=== PATIENT | female | born 1930 | race Caucasian/White ===

== ENCOUNTER 2017-11-22 23:13 | Inpatient (IN) ==
--- NOTE | 2017-11-23 00:12 | ED ---
HPI General Chief Complaint: Fall Stated Complaint: Fall Time Seen by Provider: 11/23/17 00:08 History of Present Illness HPI Narrative: 87-year-old female presents to the emergency department by EMS transport from home after a non-syncopal slip and fall out of her chair. Patient does not know she hit her head or not but does not believe so daughter at bedside states that she has dementia. Patient denies any neck pain chest pain back pain abdominal pain or extremity pain other than the discomfort associated with her right lower extremity. Patient has severe arthritis according to the daughter and was having some difficulty with ambulating this evening. Related Data Home Medications Medication Instructions Recorded Confirmed aspirin 81 mg PO DAILY 11/23/17 11/23/17 donepezil 10 mg PO DAILY 11/23/17 11/23/17 gemfibrozil 600 mg PO BID 11/23/17 11/23/17 levothyroxine [Synthroid] 100 mcg PO DAILY 11/23/17 11/23/17 memantine See Label Instructions .ROUTE 11/23/17 11/23/17 .COMPLEX mirtazapine 30 mg PO DAILY 11/23/17 11/23/17 Previous Rx's Medication Instructions Recorded hydrocodone-acetaminophen [[place]] 1 tab PO Q4H #40 tab 11/23/17 rivaroxaban [Xarelto] 10 mg PO DAILY #14 tab 11/23/17 Allergies Allergy/AdvReac Type Severity Reaction Status Date / Time hydromorphone Allergy Severe RASH Unverified 11/22/17 23:49 penicillin G Allergy Severe Rash Unverified 11/22/17 23:49 pregabalin Allergy Severe rash Unverified 11/22/17 23:49 Sulfa (Sulfonamide Allergy Severe rash Unverified 11/22/17 23:49 Antibiotics) acetaminophen Allergy Unknown UNKNOWN Unverified 11/22/17 23:49 propoxyphene Allergy Unknown UNKNOWN Unverified 11/22/17 23:49 codeine AdvReac Severe Confusion Unverified 11/22/17 23:49 Review of Systems ROS: all other systems reviewed are negative [facility] Medical History Medical History Cancer (Acute) H/O tooth extraction (Acute) Heart attack (Acute) Hemorrhoid (Acute) History of hysterectomy (Acute) Leukemia (Acute) Lymphoma, non-Hodgkin's (Acute) Pacemaker (Acute) Polymyalgia rheumatica (Acute) Primary cancer of bone marrow (Acute) Surgical History Surgical History History of knee surgery (Acute) History of shoulder surgery (Acute) Stented coronary artery (Acute) Social History Social History Substance History: No History of Abuse Second Hand Smoke Exposure: Yes Smoking Status: Current some day smoker Tobacco Type: Cigarettes How Often Do You Have a Drink Containing Alcohol: 2 to 3 times a week [facility] within the Last 8 Weeks: No Recent Out of Country Travel within the Last 8 Weeks: No Immunization History Tetanus Immunization: >5 Years Hx Influenza Vaccine This Season: Yes Exam Narrative Exam Narrative: GENERAL: Well-nourished, well-developed patient. No acute distress no respiratory distress resting supine SKIN: Focused skin assessment warm/dry. HEAD: Normocephalic. EYES: No scleral icterus. No injection or drainage. NECK: Supple, trachea midline. No JVD or lymphadenopathy. CARDIOVASCULAR: Regular rate and rhythm without murmurs, gallops, or rubs. RESPIRATORY: Breath sounds equal bilaterally. No accessory muscle use. GASTROINTESTINAL: Abdomen soft, non-tender, nondistended. MUSCULOSKELETAL: No cyanosis, or edema. Attention right lower extremity mild soft tissue swelling noted at the proximal femur/hip with tenderness to palpation no ecchymosis no abrasion; no shortening or external rotation dorsalis pedis pulses 2+ to palpation bilaterally. Patient able to perform hip flexion knee flexion and ankle plantar and dorsiflexion of the left lower extremity but unable to perform any range of motion of the right lower extremity as precipitates increased pain at the right hip. BACK: Nontender without obvious deformity. No CVA tenderness. Course Initial Documented Vital Signs Temperature 98.0 F 11/22/17 23:37 Pulse Rate 60 11/22/17 23:37 Respiratory Rate 16 11/22/17 23:37 Blood Pressure 146/72 H 11/22/17 23:37 Pulse Oximetry 97 11/22/17 23:37 Last Documented Vital Signs Temperature 97.8 F 11/23/17 04:00 Pulse Rate 62 11/23/17 04:00 Respiratory Rate 17 11/23/17 04:00 Blood Pressure 165/74 H 11/23/17 04:00 Pulse Oximetry 96 11/23/17 04:00 Medical Decision Making MDM Narrative Medical decision making narrative: for pain management patient given morphine sulfate 4 mg [id number] female presents to the emergency department with severe hip pain status post non-syncopal slip and fall from her chair while sitting. Chair leg was caught on the rug causing her to lose her balance and fall. Patient did not hit her head or have loss of consciousness and denies other injury. Patient placed on commercial real estate manager with continuous pulse oximetry IV access obtained 1 dose as well as Zofran 4 mg imaging studies ordered Imaging studies consistent with slightly impacted femoral neck fracture. Patient informed that she has a an acute right hip fracture and will be admitted to medicine service with consult to orthopedist for surgical repair of the hip. Daughter at bedside. Patient discussed with medicine service Dr. German accepted for admission will consult orthopedist. Medical Screen Exam Complete: Yes Emergency Medical Condition: Yes Differential Diagnosis Differential Diagnosis: Fall, hip fracture, pelvic fracture, buttock contusion, electrolyte disturbance, anemia, Medical Records Medical records reviewed: Yes I reviewed the patient's medical records. Lab Data Lab results reviewed: Yes I reviewed the patient's lab results. Result diagrams: 11/23/17 01:05 11/23/17 01:05 Lab Results 11/23/17 11/23/17 11/23/17 Range/Units 01:05 01:05 01:05 WBC 5.0 (4.0-11.0) th/mm3 RBC 4.31 (4.00-5.30) mil/mm3 Hgb 13.2 (11.6-15.3) gm/dL Hct 39.4 (35.0-46.0) % MCV 91.5 (80.0-100.0) fL MCH 30.7 (27.0-34.0) pg MCHC 33.6 (32.0-36.0) % RDW 14.5 (11.6-17.2) % Plt Count 149 L (150-450) th/mm3 MPV 9.6 (7.0-11.0) fL Neut % (Auto) 60.2 (16.0-70.0) % Lymph % (Auto) 24.9 (9.0-44.0) % Graves % (Auto) 10.3 H (0.0-8.0) % Eos % (Auto) 3.9 (0.0-4.0) % Baso % (Auto) 0.7 (0.0-2.0) % Neut # (Auto) 3.0 (1.8-7.7) th/mm3 Lymph # (Auto) 1.2 (1.0-4.8) th/mm3 Graves # (Auto) 0.5 (0.0-0.9) th/mm3 Eos # (Auto) 0.2 (0.0-0.4) th/mm3 Baso # (Auto) 0.0 (0.0-0.2) th/mm3 WBC Differential . Differential Comment Auto diff final PT 10.0 (9.8-11.6) sec INR 1.0 Ratio APTT 23.6 L (24.3-30.1) sec Sodium 142 (136-145) meq/L Potassium 4.4 (3.5-5.1) meq/L Chloride 106 (98-107) meq/L Carbon Dioxide 26.1 (21.0-32.0) meq/L Anion Gap 10 (5-15) meq/L BUN 25 H (7-18) mg/dL Creatinine 1.28 H (0.50-1.00) mg/dL Estimated GFR 39 L (>89) mL/min Random Glucose 82 (74-106) mg/dL Calcium 8.6 (8.5-10.1) mg/dL Total Bilirubin 0.4 (0.2-1.0) mg/dL AST 18 (15-37) U/L ALT 17 (10-53) U/L Alkaline Phosphatase 94 (45-117) U/L Troponin I Less than 0.02 L (0.02-0.05) ng/mL Total Protein 7.0 (6.4-8.2) g/dL Albumin 3.3 L (3.4-5.0) g/dL Urine Color (Yellw/Straw) Urine Clarity (Clear) Urine pH (5.0-8.5) Ur Specific [place] (1.002-1.035) Urine Protein (Neg-Trace) mg/dL Urine Glucose (UA) (Negative) mg/dL Urine Ketones (Negative) mg/dL Urine Occult Blood (Negative) Urine Nitrate (Negative) Urine Bilirubin (Negative) Urine Urobilinogen (Less than 2) mg/dL Ur Leukocyte Esterase (Negative) Urine RBC (0-3) /hpf Urine WBC (0-5) /hpf Urine Bacteria (None) /hpf Hyaline Casts (0-3) /lpf Ur Microscopic Review Blood Type Antibody Screen 11/23/17 11/23/17 Range/Units 01:05 01:25 WBC (4.0-11.0) th/mm3 RBC (4.00-5.30) mil/mm3 Hgb (11.6-15.3) gm/dL Hct (35.0-46.0) % MCV (80.0-100.0) fL MCH (27.0-34.0) pg MCHC (32.0-36.0) % RDW (11.6-17.2) % Plt Count (150-450) th/mm3 MPV (7.0-11.0) fL Neut % (Auto) (16.0-70.0) % Lymph % (Auto) (9.0-44.0) % Graves % (Auto) (0.0-8.0) % Eos % (Auto) (0.0-4.0) % Baso % (Auto) (0.0-2.0) % Neut # (Auto) (1.8-7.7) th/mm3 Lymph # (Auto) (1.0-4.8) th/mm3 Graves # (Auto) (0.0-0.9) th/mm3 Eos # (Auto) (0.0-0.4) th/mm3 Baso # (Auto) (0.0-0.2) th/mm3 WBC Differential Differential Comment PT (9.8-11.6) sec INR Ratio APTT (24.3-30.1) sec Sodium (136-145) meq/L Potassium (3.5-5.1) meq/L Chloride (98-107) meq/L Carbon Dioxide (21.0-32.0) meq/L Anion Gap (5-15) meq/L BUN (7-18) mg/dL Creatinine (0.50-1.00) mg/dL Estimated GFR (>89) mL/min Random Glucose (74-106) mg/dL Calcium (8.5-10.1) mg/dL Total Bilirubin (0.2-1.0) mg/dL AST (15-37) U/L ALT (10-53) U/L Alkaline Phosphatase (45-117) U/L Troponin I (0.02-0.05) ng/mL Total Protein (6.4-8.2) g/dL Albumin (3.4-5.0) g/dL Urine Color Yellow (Yellw/Straw) Urine Clarity Clear (Clear) Urine pH 6.0 (5.0-8.5) Ur Specific [place] 1.014 (1.002-1.035) Urine Protein Negative (Neg-Trace) mg/dL Urine Glucose (UA) Negative (Negative) mg/dL Urine Ketones Trace H (Negative) mg/dL Urine Occult Blood Negative (Negative) Urine Nitrate Negative (Negative) Urine Bilirubin Negative (Negative) Urine Urobilinogen Less than 2 (Less than 2) mg/dL Ur Leukocyte Esterase Moderate H (Negative) Urine RBC 1 (0-3) /hpf Urine WBC 6 H (0-5) /hpf Urine Bacteria Rare H (None) /hpf Hyaline Casts 1 (0-3) /lpf Ur Microscopic Review Not Reportable Blood Type A Positive Antibody Screen Negative Imaging Data Radiologist's impression: Chest X-Ray 11/23/17 00:08 CONCLUSION: 1. No acute abnormality or significant interval change. Tibia/Fibula X-Ray 11/23/17 00:08 CONCLUSION: 1. No acute fracture. Femur X-Ray 11/23/17 00:09 CONCLUSION: 1. Right femoral neck fracture. Hip X-Ray 11/23/17 00:09 CONCLUSION: 1. Right femoral neck fracture, as above. ECG Data EKG Prior to Arrival: No Attestation: I personally reviewed and interpreted this ECG as follows: Prior ECG tracings: not available for review Interpretation: EKG: Normal sinus rhythm no acute ST elevation or injury pattern Discharge Plan Discharge Disposition Patient Disposition: 30 Still Patient Discharge Condition Condition: Stable Discharge Details Diagnosis: Closed hip fracture Physicians Team ED Provider: Laurie Gleason Primary Care Provider: Snehal Bella Attending Provider: Neymar Matthews Other Providers: Geoffrey Kerr Discharge Interventions Interventions: ED Discharge Assessment Last Done: 11/23/17 05:03 Status ED Status: Left Department Discharge Information Discharge Date/Time: 11/23/17 05:03
[2017-11-23] MEDS ORDERED: Morphine Inj 4 MG/ML Vial IV.PUSH ONE ×2 (00:20→01:27)
--- NOTE | 2017-11-23 01:10 | XR ---
EXAM DATE: 11/23/2017 1:05 AM EDT AGE/SEX: 87 years / Female INDICATIONS: Trauma due to fall. CLINICAL DATA: This is the patient's initial encounter. Patient reports that signs and symptoms have been present for 1 day and indicates a pain score of 10/10. MEDICAL/SURGICAL HISTORY: . Dementia. [place]. Non hodgkins lymphoma. Leukemia. Cancer, Bone. . Lef t knee, Right shoulder. Pacemaker. Stents. COMPARISON: [facility], CHEST SINGLE AP, 01/15/2016. . FINDINGS: No significant new focal pleural or parenchymal opacities. Stable dual lead pacemaker in place. Cardi omediastinal contours are within normal limits. Right shoulder arthroplasty. Osseous structures are o therwise intact. CONCLUSION: 1. No acute abnormality or significant interval change. Electronically signed by: Dajuan Luciano MD 11/23/2017 1:08 AM EDT
--- NOTE | 2017-11-23 01:10 | XR ---
EXAM DATE: 11/23/2017 1:07 AM EDT AGE/SEX: 87 years / Female INDICATIONS: Trauma due to fall. CLINICAL DATA: This is the patient's initial encounter. Patient reports that signs and symptoms have been present for 1 day and indicates a pain score of 0/10. MEDICAL/SURGICAL HISTORY: . Dementia. [place]. Non hodgkins lymphoma. Leukemia. Cancer, Bone. . Rig ht shoulder. Left knee. Pacemaker. Stents. COMPARISON: [facility], FEMUR RIGHT 2V, 11/23/2017. . FINDINGS: Bony structures are intact and in normal alignment. Osseous density is normal. Soft tissues are unre markable. No radiopaque foreign bodies seen. CONCLUSION: 1. No acute fracture. Electronically signed by: Dajuan Luciano MD 11/23/2017 1:09 AM EDT
--- NOTE | 2017-11-23 01:19 | XR ---
EXAM DATE: 11/23/2017 1:12 AM EDT AGE/SEX: 87 years / Female INDICATIONS: Trauma due to fall. CLINICAL DATA: This is the patient's initial encounter. Patient reports that signs and symptoms have been present for 1 day and indicates a pain score of 10/10. MEDICAL/SURGICAL HISTORY: . Dementia. [place]. Non hodgkins lymphoma. Leukemia. Cancer, Bone. . Pac emaker. Stents. Right shoulder. Left knee. COMPARISON: [facility], CT ABDOMEN & PELVIS W CONTRAST, 01/01/2016. . FINDINGS: There is a transverse fracture of the right femoral neck with slight impaction and minimal cephalad d isplacement of the distal fragment. Remaining osseous structures are intact. Joint spaces are maintai duke. Degenerative changes noted in the lower lumbar spine. No radiopaque foreign bodies. CONCLUSION: 1. Right femoral neck fracture, as above. Electronically signed by: Dajuan Luciano MD 11/23/2017 1:18 AM EDT
--- NOTE | 2017-11-23 01:20 | XR ---
EXAM DATE: 11/23/2017 1:10 AM EDT AGE/SEX: 87 years / Female INDICATIONS: Trauma due to fall. CLINICAL DATA: This is the patient's initial encounter. Patient reports that signs and symptoms have been present for 1 day and indicates a pain score of 10/10. MEDICAL/SURGICAL HISTORY: . Dementia. [place]. Non hodgkins lymphoma. Leukemia. Cancer, Bone. . Pac emaker. Stents. Right shoulde. Left knee. COMPARISON: [facility], HIP RIGHT W AP PELVIS 2V, 11/23/2017. . FINDINGS: Transverse fracture of the right femoral neck with slight cephalad displacement of the distal fragmen t. Remainder of the femur appears intact. There is anatomic alignment at the joints. No radiopaque fo reign bodies. CONCLUSION: 1. Right femoral neck fracture. Electronically signed by: Dajuan Luciano MD 11/23/2017 1:19 AM EDT
[2017-11-23 01:35] LABS: Baso % (Auto) 0.7 % (0.0-2.0); Eos # (Auto) 0.2 th/mm3 (0.0-0.4); Eos % (Auto) 3.9 % (0.0-4.0); Hematocrit 39.4 % (35.0-46.0); Hemoglobin 13.2 gm/dL (11.6-15.3); Lymph # (Auto) 1.2 th/mm3 (1.0-4.8); Lymph % (Auto) 24.9 % (9.0-44.0); Mean Corpuscular HGB Conc 33.6 % (32.0-36.0); Mean Corpuscular Hemoglobin 30.7 pg (27.0-34.0); Mean Corpuscular Volume 91.5 fL (80.0-100.0); Mean Platelet Volume 9.6 fL (7.0-11.0); Mono # (Auto) 0.5 th/mm3 (0.0-0.9); Mono % (Auto) 10.3 % (0.0-8.0); Neut % (Auto) 60.2 % (16.0-70.0); Platelet Count 149 th/mm3 (150-450); Red Blood Count 4.31 mil/mm3 (4.00-5.30); Red Cell Distribution Width 14.5 % (11.6-17.2)
[2017-11-23 01:45] LABS: Activated Partial Thrombo Time 23.6 sec (24.3-30.1)
[2017-11-23 01:47] LABS: Bacteria,Urine Rare /hpf; Bilirubin,Urine Negative (Negative); Clarity,Urine Clear (Clear); Color,Urine Yellow (Yellw/Straw); Glucose,Urine (UA) Negative (Negative); Hyaline Casts,Urine 1 /lpf (0-3); Leukocyte Esterase,Urine Moderate (Negative); Nitrite,Urine Negative (Negative); Specific Gravity,Urine 1.014 (1.002-1.035)
[2017-11-23 01:48] LABS: Alanine Aminotransferase 17 U/L (10-53); Albumin 3.3 g/dL (3.4-5.0); Anion Gap 10 meq/L (5-15); Aspartate Aminotransferase 18 U/L (15-37); Blood Urea Nitrogen 25 mg/dL (7-18); Calcium 8.6 mg/dL (8.5-10.1); Carbon Dioxide 26.1 meq/L (21.0-32.0); Chloride 106 meq/L (98-107); Glomerular Filtration Rate 39 mL/min (>89); Glucose,Random 82 mg/dL (74-106); Potassium 4.4 meq/L (3.5-5.1); Sodium 142 meq/L (136-145)
[2017-11-23 01:52] LABS: Alkaline Phosphatase 94 U/L (45-117)
[2017-11-23] MEDS ORDERED: Bisacodyl 10 MG Supp RECTAL PRN (01:54)
--- NOTE | 2017-11-23 02:16 | P.HPIM ---
History of Present Illness Primary Care Physician: Snehal Bella MD History of Present Illness: This is an 87-year-old female with a PMH of HTN, Polymyalgia Rheumatica, Non- Hodgkin's Lymphoma and CAD who was brought to the ER by EMS w/ c/o right hip pain after a fall. Pt states she was sitting on her porch in a "swivel chair" and lost her balance when she got up, landing on her right hip. Reports some dizziness prior to fall, but no head trauma or LOC. Pain initially severe, 10/ 10, worse w/ movement, non-radiating. S/p Morphine in ER w/ significant improvement, currently pain free. On arrival, BP 146/72, HR 60, O2 sat 97% on RA, Afebrile. CBC unremarkable except for thrombus cytopenia with platelets 149. INR 1.0. Chemistry unremarkable except for creatinine 1.28, Cici 1.10 on 01/15/2016. Troponin negative. UA moderate LE. CXR no acute findings. Tib- fib X-ray no acute fracture. Femur/Hip x-ray right femoral neck fracture. - Diagnosis (1) Fall (2) Hip fracture, right (3) Renal insufficiency Inpatient Certification: I certify that the inpatient services were ordered in accordance with Medicare regulations governing the order. This includes certification that hospital inpatient services are reasonable and necessary and in the case of services not specified as inpatient-only under 42 CFR 419.22(n), that they are appropriately provided as inpatient services in accordance to with the 2-midnight benchmark under 43 CFR 412.3(e) Estimated Total Length of Stay (Days): 2 Plans for Post Hospital Care: Not yet determined Review of Systems PAST FAMILY HISTORY: Reviewed. No h/o DM or CAD All other systems reviewed negative except as stated in HPI PMFSH - History History Provided By: Family Member - Medical History Medical History: Medical History (Last Updated 11/22/17 @ 23:45 by Greta Goncalves) Cancer H/O tooth extraction Heart attack Hemorrhoid History of hysterectomy Leukemia Lymphoma, non-Hodgkin's Pacemaker Polymyalgia rheumatica Primary cancer of bone marrow - Surgical History Surgical History: Surgical History (Last Updated 11/22/17 @ 23:45 by Greta Goncalves) History of knee surgery History of shoulder surgery Stented coronary artery - Tobacco History Tobacco Use In Past 30 Days: Yes Smoking Status: Current every day smoker Tobacco Type: Cigarettes - Alcohol History How Often Do You Have a Drink Containing Alcohol: 2 to 4 times a month - Substance Use History Substance History: No History of Abuse - Travel History Recent Travel in the [place] Within the Last 8 Weeks: No Recent Travel Out of the Country Within the Last 8 Weeks: No - Immunization History Tetanus Immunization: >5 Years Hx Influenza Vaccine This Season: Yes Medications and Allergies Active Medications: Active Medications Al Hydroxide/Mg Hydroxide (Milk Of Magnesia Liq) 30 ml PO Q12H PRN PRN Reason: Mild Constipation Bisacodyl (Dulcolax Supp) 10 mg RECTAL DAILY PRN PRN Reason: SEVERE CONSITIPATION Sodium Chloride (Ns Inj) 1,000 mls @ 100 mls/hr IV.CONT .Q10H ISIDORO Lactulose (Lactulose Liq) 30 ml PO DAILY PRN PRN Reason: SEVERE CONSITIPATION Morphine Sulfate (Morphine Inj) 2 mg IV.PUSH Q4H PRN PRN Reason: PAIN 6-10 Ondansetron HCl (Zofran Inj) 4 mg IV.PUSH Q6H PRN PRN Reason: NAUSEA OR VOMITING Senna/Docusate Sodium (Loni-Colace) 1 tab PO BID ISIDORO Sennosides (Senokot) 17.2 mg PO Q12H PRN PRN Reason: Moderate Constipation Sodium Chloride (Ns Flush) 2 ml IV.FLUSH UNSCH PRN PRN Reason: FLUSH AFTER USING IV ACCESS Allergies Allergy/AdvReac Type Severity Reaction Status Date / Time hydromorphone Allergy Severe RASH Unverified 11/22/17 23:49 penicillin G Allergy Severe Rash Unverified 11/22/17 23:49 pregabalin Allergy Severe rash Unverified 11/22/17 23:49 Sulfa (Sulfonamide Allergy Severe rash Unverified 11/22/17 23:49 Antibiotics) acetaminophen Allergy Unknown UNKNOWN Unverified 11/22/17 23:49 propoxyphene Allergy Unknown UNKNOWN Unverified 11/22/17 23:49 codeine AdvReac Severe Confusion Unverified 11/22/17 23:49 Home Medications Medication Instructions Recorded Confirmed Type aspirin 81 mg PO DAILY 11/23/17 11/23/17 History donepezil 10 mg PO DAILY 11/23/17 11/23/17 History gemfibrozil 600 mg PO BID 11/23/17 11/23/17 History levothyroxine [Synthroid] 100 mcg PO DAILY 11/23/17 11/23/17 History memantine See Label Instructions .ROUTE 11/23/17 11/23/17 History .COMPLEX mirtazapine 30 mg PO DAILY 11/23/17 11/23/17 History Exam Vital signs: Vital Signs 11/22/17 23:37 11/23/17 00:12 Temperature 98.0 F Pulse Rate 60 66 Respiratory Rate 16 Blood Pressure 146/72 H Pulse Oximetry 97 Intake & Output 11/22/17 11/22/17 11/23/17 06:59 18:59 06:59 Weight 68.039 kg Narrative: PE: GENERAL: Extremely pleasant elderly white female in no acute distress. SKIN: Focused skin assessment warm and dry. HEENT: PERRLA, EOMI. No scleral icterus or conjunctival pallor. No lid lag or facial droop. CARDIOVASCULAR: Regular rate and rhythm. No obvious murmurs to auscultation. No chest tenderness to palpation. RESPIRATORY: No obvious rhonchi or wheezing. Clear to auscultation. Breath sounds equal bilaterally. GASTROINTESTINAL: Abdomen soft, non-tender, nondistended. BS normal. MUSCULOSKELETAL: Extremities without clubbing, cyanosis, or edema. No obvious deformities. Decreased ROM of RLE due to injury, pain w/ movement. NEUROLOGICAL: Awake, alert and oriented x4. No focal neurologic deficits. Moving both upper and lower extremities spontaneously. PSYCHIATRIC: Appropriate mood and affect. Insight and judgment normal. Results - Labs CBC & Chem 7: 11/23/17 01:05 11/23/17 01:05 Labs: Short CBC 11/23/17 Range/Units 01:05 WBC 5.0 (4.0-11.0) th/mm3 Hgb 13.2 (11.6-15.3) gm/dL Hct 39.4 (35.0-46.0) % Plt Count 149 L (150-450) th/mm3 BMP 11/23/17 01:05 Sodium 142 Potassium 4.4 Chloride 106 Carbon Dioxide 26.1 BUN 25 H Creatinine 1.28 H Calcium 8.6 Cardiac Enzymes 11/23/17 Range/Units 01:05 Troponin I Less than 0.02 L (0.02-0.05) ng/mL Liver Function 11/23/17 Range/Units 01:05 Total Bilirubin 0.4 (0.2-1.0) mg/dL AST 18 (15-37) U/L ALT 17 (10-53) U/L Alkaline Phosphatase 94 (45-117) U/L Albumin 3.3 L (3.4-5.0) g/dL Urine 11/23/17 Range/Units 01:25 Urine Color Yellow (Yellw/Straw) Urine Clarity Clear (Clear) Urine pH 6.0 (5.0-8.5) Ur Specific [place] 1.014 (1.002-1.035) Urine Protein Negative (Neg-Trace) mg/dL Urine Glucose (UA) Negative (Negative) mg/dL - Imaging Impressions Chest X-Ray 11/23/17 00:08 CONCLUSION: 1. No acute abnormality or significant interval change. Tibia/Fibula X-Ray 11/23/17 00:08 CONCLUSION: 1. No acute fracture. Femur X-Ray 11/23/17 00:09 CONCLUSION: 1. Right femoral neck fracture. Hip X-Ray 11/23/17 00:09 CONCLUSION: 1. Right femoral neck fracture, as above. Caprini VTE Risk Assessment Caprini VTE Risk Assessment: No/Low Risk (score <= 1) Caprini Risk Assessment Model: Point Value = 1 Point Value = 2 Point Value = 3 Point Value = 5 Age 41-60 Minor surgery BMI > 25 kg/m2 Swollen legs Varicose veins or History of unexplained or recurrent spontaneous Oral contraceptives or hormone replacement Sepsis (< 1 month) Serious lung disease, including pneumonia (< 1 month) Abnormal pulmonary function Acute myocardial infarction Congestive heart failure (< 1 month) History of inflammatory bowel disease Medical patient at bed rest Age 61-74 Arthroscopic surgery Major open surgery (> 45 min) Laparoscopic surgery (> 45 min) Malignancy Confined to bed (> 72 hours) Immobilizing plaster cast Central venous access Age >= 75 History of VTE Family history of VTE Factor V Leiden Prothrombin [id number] Lupus anticoagulant Anticardiolipin antibodies Elevated serum homocysteine Heparin-induced thrombocytopenia Other congenital or acquired thrombophilia Stroke (< 1 month) Elective arthroplasty Hip, pelvis, or leg fracture Acute spinal cord injury (< 1 month) Prophylaxis Regimen: Total Risk Factor Score Risk Level Prophylaxis Regimen 0-1 Low Early ambulation 2 Moderate Order ONE of the following: *Sequential Compression Device (SCD) *Heparin 5000 units SQ BID 3-4 Higher Order ONE of the following medications: *Heparin 5000 units SQ TID *Enoxaparin/Lovenox 40 mg SQ daily (WT < 150 kg, CrCl > 30 mL/min) *Enoxaparin/Lovenox 30 mg SQ daily (WT < 150 kg, CrCl > 10-29 mL/min) *Enoxaparin/Lovenox 30 mg SQ BID (WT < 150 kg, CrCl > 30 mL/min) AND/OR *Sequential Compression Device (SCD) 5 or more Highest Order ONE of the following medications: *Heparin 5000 units SQ TID (Preferred with Epidurals) *Enoxaparin/Lovenox 40 mg SQ daily (WT < 150 kg, CrCl > 30 mL/min) *Enoxaparin/Lovenox 30 mg SQ daily (WT < 150 kg, CrCl > 10-29 mL/min) *Enoxaparin/Lovenox 30 mg SQ BID (WT < 150 kg, CrCl > 30 mL/min) AND *Sequential Compression Device (SCD) Assessment and Plan - Assessment (1) Fall Code(s): W19.XXXA - Unspecified fall, initial encounter Status: Acute (2) Hip fracture, right Code(s): S72.001A - Fracture of unspecified part of neck of right femur, initial encounter for closed fracture Status: Acute (3) Renal insufficiency Code(s): N28.9 - Disorder of kidney and ureter, unspecified Status: Acute - Plan A/P: 1. Fall: s/p mechanical fall at home, denies LOC or head trauma. 2. Right Hip Fx: secondary to above, Femur/Hip X-ray w/ right femoral neck fracture, images reviewed. Consult Ortho for further eval/intervention, NPO, IVF, analgesics/antiemetics as needed. 3. Renal Insufficiency: Creatinine 1.28, previously 1.10 on 01/15/16, IVF for hydration, monitor I/O, repeat labs in am. 4. DVT Prophylaxis: Anticoagulation post op 5. Social work for d/c planning as needed 6. Case discussed w/ ER physician at length, labs/records/imaging reviewed by me.
[2017-11-23] MEDS: Mirtazapine 15 MG Tablet PO PRN (03:09)
[2017-11-23] MEDS: Sod Chloride 0.9% Inj 1,000 ML IV.CONT SCH ×3 (03:09→11:57)
[2017-11-23] MEDS ORDERED: Chlorhexidine Gluconate 2% 1 Pack (2 Cloths) TOPICAL ONE (05:21)
[2017-11-23] MEDS ORDERED: Metoprolol Tartrate 25 MG Tablet PO ONE (05:21)
[2017-11-23] MEDS: Morphine Inj 4 MG/ML Vial IV.PUSH PRN (05:37)
[2017-11-23] MEDS ORDERED: Sodium Chlor 0.9% Inj 500 ML IV.SIG SCH (06:00)
--- NOTE | 2017-11-23 06:45 | P.PNOP ---
Subjective Interval history: s/p fall right hip pain Physical Exam Vital signs: Vital Signs 11/22/17 23:37 11/23/17 00:12 11/23/17 04:00 Temperature 98.0 F 97.8 F Pulse Rate 60 66 62 Respiratory Rate 16 17 Blood Pressure 146/72 H 165/74 H Pulse Oximetry 97 96 Intake & Output 11/22/17 11/22/17 11/23/17 06:59 18:59 06:59 Weight 58.3 kg Other: Weight On Admission 58.3 kg Narrative: RLE: pain with motion. nvi - Urinary Catheter Management Indwelling Urethral Catheter Cath placed during this visit: yes Reason for continuing: Hourly intake/output Insertion date: 11/23/17 Insertion time: 01:28 Results - Labs CBC & Chem 7: 11/23/17 01:05 11/23/17 01:05 Laboratory Results - last 24 hr 11/23/17 11/23/17 11/23/17 01:05 01:05 01:05 WBC 5.0 RBC 4.31 Hgb 13.2 Hct 39.4 MCV 91.5 MCH 30.7 MCHC 33.6 RDW 14.5 Plt Count 149 L MPV 9.6 Neut % (Auto) 60.2 Lymph % (Auto) 24.9 [place] % (Auto) 10.3 H Eos % (Auto) 3.9 Baso % (Auto) 0.7 Neut # (Auto) 3.0 Lymph # (Auto) 1.2 [place] # (Auto) 0.5 Eos # (Auto) 0.2 Baso # (Auto) 0.0 WBC Differential . Differential Comment Auto diff final PT 10.0 INR 1.0 APTT 23.6 L Sodium 142 Potassium 4.4 Chloride 106 Carbon Dioxide 26.1 Anion Gap 10 BUN 25 H Creatinine 1.28 H Estimated GFR 39 L Random Glucose 82 Calcium 8.6 Total Bilirubin 0.4 AST 18 ALT 17 Alkaline Phosphatase 94 Troponin I Less than 0.02 L Total Protein 7.0 Albumin 3.3 L Urine Color Urine Clarity Urine pH Ur Specific [place] Urine Protein Urine Glucose (UA) Urine Ketones Urine Occult Blood Urine Nitrate Urine Bilirubin Urine Urobilinogen Ur Leukocyte Esterase Urine RBC Urine WBC Urine Bacteria Hyaline Casts Ur Microscopic Review Blood Type Antibody Screen 11/23/17 11/23/17 01:05 01:25 WBC RBC Hgb Hct MCV MCH MCHC RDW Plt Count MPV Neut % (Auto) Lymph % (Auto) [place] % (Auto) Eos % (Auto) Baso % (Auto) Neut # (Auto) Lymph # (Auto) [place] # (Auto) Eos # (Auto) Baso # (Auto) WBC Differential Differential Comment PT INR APTT Sodium Potassium Chloride Carbon Dioxide Anion Gap BUN Creatinine Estimated GFR Random Glucose Calcium Total Bilirubin AST ALT Alkaline Phosphatase Troponin I Total Protein Albumin Urine Color Yellow Urine Clarity Clear Urine pH 6.0 Ur Specific [place] 1.014 Urine Protein Negative Urine Glucose (UA) Negative Urine Ketones Trace H Urine Occult Blood Negative Urine Nitrate Negative Urine Bilirubin Negative Urine Urobilinogen Less than 2 Ur Leukocyte Esterase Moderate H Urine RBC 1 Urine WBC 6 H Urine Bacteria Rare H Hyaline Casts 1 Ur Microscopic Review Not Reportable Blood Type A Positive Antibody Screen Negative - Imaging Impressions Chest X-Ray 11/23/17 00:08 CONCLUSION: 1. No acute abnormality or significant interval change. Tibia/Fibula X-Ray 11/23/17 00:08 CONCLUSION: 1. No acute fracture. Femur X-Ray 11/23/17 00:09 CONCLUSION: 1. Right femoral neck fracture. Hip X-Ray 11/23/17 00:09 CONCLUSION: 1. Right femoral neck fracture, as above. Assessment and Plan - Assessment and Plan 1) Right Femoral NEck Fx -npo -consents -surgery today [facility] Prescription Drug Monitoring Database has been queried and verified prior to prescribing the controlled substance. Acute pain exception. This patient has normal, predicted, physiological, and time limited response to an adverse mechanical stimulus associated with surgery, trauma, or acute illness as described in my notes. There is a lack of alternative treatment options other than to include the prescribed narcotic treatment for this condition.
--- NOTE | 2017-11-23 06:47 | P.CONOP ---
[facility] Orthopedics Consult Note - [facility] Consult date: 11/23/17 Chief complaint: Right femoral neck fracture Narrative: Idalia is an 87-year-old female. She was at home when she fell. She was sitting in a chair that swivels when she lost her balance. She was getting up when she lost her balance and fell. She landed on her right side. She had immediate right hip pain. Initially pain was severe. The pain is worse with movement and is improved with rest. She presented to the emergency room where x -rays revealed a displaced right femoral neck fracture. She is currently awake alert on the orthopedic floor. Her only complaint is right hip. Review of Systems Patient denies fevers, chills, weight loss, headache, visual changes, hearing loss, chest pain, palpitations, shortness of breath, nausea, vomiting, no urinary changes, diarrhea, bowel changes, neck pain, back pain, skin rashes, weakness of extremities, easy bleeding, enlarged lymph nodes, numbness of extremities, anxiety, or depression. Patient's social history, past medical history, and family history were reviewed on chart and with patient. [facility] - History History Provided By: Patient - Medical History Medical History: Medical History (Last Reviewed 11/23/17 @ 06:40 by Geoffrey Kerr MD) Cancer H/O tooth extraction Heart attack Hemorrhoid History of hysterectomy Leukemia Lymphoma, non-Hodgkin's Pacemaker Polymyalgia rheumatica Primary cancer of bone marrow - Surgical History Surgical History: Surgical History (Last Reviewed 11/23/17 @ 06:40 by Geoffrey Kerr MD) History of knee surgery History of shoulder surgery Stented coronary artery - Social History I have reviewed the patient's Social History: Yes - Tobacco History Second Hand Smoke Exposure: Yes Tobacco Use In Past 30 Days: Yes Smoking Status: Current some day smoker Tobacco Type: Cigarettes - Alcohol History How Often Do You Have a Drink Containing Alcohol: 2 to 3 times a week - Substance Use History Substance History: No History of Abuse - Travel History Recent Travel in the [place] Within the Last 8 Weeks: No Recent Travel Out of the Country Within the Last 8 Weeks: No - Immunization History Tetanus Immunization: >5 Years Hx Influenza Vaccine This Season: Yes Medications and Allergies Active Medications: Active Medications Al Hydroxide/Mg Hydroxide (Milk Of Magnesia Liq) 30 ml PO Q12H PRN PRN Reason: Mild Constipation Bisacodyl (Dulcolax Supp) 10 mg RECTAL DAILY PRN PRN Reason: SEVERE CONSITIPATION Donepezil HCl (Aricept) 10 mg PO DAILY [facility] Gemfibrozil (Lopid) 600 mg PO BID [facility] Sodium Chloride (Ns Inj) 1,000 mls @ 100 mls/hr IV.CONT .Q10H [facility] Last Admin: 11/23/17 03:09 Dose: 100 mls/hr Lactated Ringer's (Lr 1000 Ml Inj) 1,000 mls @ 30 mls/hr IV.SIG .Q24H [facility] Stop: 11/24/17 05:29 Last Admin: 11/23/17 06:35 Dose: Not Given Sodium Chloride (Ns Inj) 500 mls @ 30 mls/hr IV.SIG .Q10H [facility] Lactulose (Lactulose Liq) 30 ml PO DAILY PRN PRN Reason: SEVERE CONSITIPATION Levothyroxine Sodium (Synthroid) 100 mcg PO DAILY@0600 [facility] Mirtazapine (Remeron) 15 mg PO HS PRN PRN Reason: SLEEP Last Admin: 11/23/17 03:09 Dose: 15 mg Morphine Sulfate (Morphine Inj) 2 mg IV.PUSH Q4H PRN PRN Reason: PAIN 6-10 Last Admin: 11/23/17 05:37 Dose: 2 mg Ondansetron HCl (Zofran Inj) 4 mg IV.PUSH Q6H PRN PRN Reason: NAUSEA OR VOMITING Senna/Docusate Sodium (Loni-Colace) 1 tab PO BID [facility] Sennosides (Senokot) 17.2 mg PO Q12H PRN PRN Reason: Moderate Constipation Sodium Chloride (Ns Flush) 2 ml IV.FLUSH UNSCH PRN PRN Reason: FLUSH AFTER USING IV ACCESS Allergies Allergy/AdvReac Type Severity Reaction Status Date / Time hydromorphone Allergy Severe RASH Unverified 11/22/17 23:49 penicillin G Allergy Severe Rash Unverified 11/22/17 23:49 pregabalin Allergy Severe rash Unverified 11/22/17 23:49 Sulfa (Sulfonamide Allergy Severe rash Unverified 11/22/17 23:49 Antibiotics) acetaminophen Allergy Unknown UNKNOWN Unverified 11/22/17 23:49 propoxyphene Allergy Unknown UNKNOWN Unverified 11/22/17 23:49 codeine AdvReac Severe Confusion Unverified 11/22/17 23:49 Home Medications Medication Instructions Recorded Confirmed Type aspirin 81 mg PO DAILY 11/23/17 11/23/17 History donepezil 10 mg PO DAILY 11/23/17 11/23/17 History gemfibrozil 600 mg PO BID 11/23/17 11/23/17 History levothyroxine [Synthroid] 100 mcg PO DAILY 11/23/17 11/23/17 History memantine See Label Instructions .ROUTE 11/23/17 11/23/17 History .COMPLEX mirtazapine 30 mg PO DAILY 11/23/17 11/23/17 History Exam Vital signs: Vital Signs 11/22/17 23:37 11/23/17 00:12 11/23/17 04:00 Temperature 98.0 F 97.8 F Pulse Rate 60 66 62 Respiratory Rate 16 17 Blood Pressure 146/72 H 165/74 H Pulse Oximetry 97 96 Intake & Output 11/22/17 11/22/17 11/23/17 06:59 18:59 06:59 Weight 58.3 kg Other: Weight On Admission 58.3 kg Narrative: Idalia is a pleasant 87-year-old female. General: Awake and alert. No acute distress. Appears well-developed well- nourished Head: Normocephalic, atraumatic pupils are equal Neck: Soft, nontender, trachea midline Abdomen: Soft, nondistended Examination of right arm reveals no pain or deformity with shoulder, elbow, or wrist motion. Skin is intact. Radial pulse is palpable. Normal capillary refill in fingers. Sensation is intact in radial, ulnar, and median nerve distributions. [employer] strength is +5. No lymphadenopathy noted. Examination of left arm reveals no pain or deformity with shoulder, elbow, or wrist motion. Skin is intact. Radial pulse is palpable. Normal capillary refill in fingers. Sensation is intact in radial, ulnar, and median nerve distributions. [employer] strength is +5. No lymphadenopathy noted. Examination of left lower extremity reveals no pain or deformity with hip, knee , or ankle motion. Skin is intact. Sensation is intact in left foot. Dorsalis pedis pulse is palpable. Normal capillary refill and feet. Thigh and calf compartments are soft. No lymphadenopathy noted. +5 strength of ankle dorsiflexion and plantarflexion. Examination of right lower extremity reveals pain with any hip motion. She is tender to palpation around her hip. She has no tenderness around her knee or ankle. Skin is intact. Sensation is intact in right foot. Dorsalis pedis pulse is palpable. Normal capillary refill and feet. Thigh and calf compartments are soft. No lymphadenopathy noted. +5 strength of ankle dorsiflexion and plantarflexion. Results - Labs Result Diagrams: 11/23/17 01:05 11/23/17 01:05 Labs: Laboratory Results - last 24 hr 11/23/17 11/23/17 11/23/17 01:05 01:05 01:05 WBC 5.0 RBC 4.31 Hgb 13.2 Hct 39.4 MCV 91.5 MCH 30.7 MCHC 33.6 RDW 14.5 Plt Count 149 L MPV 9.6 Neut % (Auto) 60.2 Lymph % (Auto) 24.9 [place] % (Auto) 10.3 H Eos % (Auto) 3.9 Baso % (Auto) 0.7 Neut # (Auto) 3.0 Lymph # (Auto) 1.2 [place] # (Auto) 0.5 Eos # (Auto) 0.2 Baso # (Auto) 0.0 WBC Differential . Differential Comment Auto diff final PT 10.0 INR 1.0 APTT 23.6 L Sodium 142 Potassium 4.4 Chloride 106 Carbon Dioxide 26.1 Anion Gap 10 BUN 25 H Creatinine 1.28 H Estimated GFR 39 L Random Glucose 82 Calcium 8.6 Total Bilirubin 0.4 AST 18 ALT 17 Alkaline Phosphatase 94 Troponin I Less than 0.02 L Total Protein 7.0 Albumin 3.3 L Urine Color Urine Clarity Urine pH Ur Specific [place] Urine Protein Urine Glucose (UA) Urine Ketones Urine Occult Blood Urine Nitrate Urine Bilirubin Urine Urobilinogen Ur Leukocyte Esterase Urine RBC Urine WBC Urine Bacteria Hyaline Casts Ur Microscopic Review Blood Type Antibody Screen 11/23/17 11/23/17 01:05 01:25 WBC RBC Hgb Hct MCV MCH MCHC RDW Plt Count MPV Neut % (Auto) Lymph % (Auto) [place] % (Auto) Eos % (Auto) Baso % (Auto) Neut # (Auto) Lymph # (Auto) [place] # (Auto) Eos # (Auto) Baso # (Auto) WBC Differential Differential Comment PT INR APTT Sodium Potassium Chloride Carbon Dioxide Anion Gap BUN Creatinine Estimated GFR Random Glucose Calcium Total Bilirubin AST ALT Alkaline Phosphatase Troponin I Total Protein Albumin Urine Color Yellow Urine Clarity Clear Urine pH 6.0 Ur Specific [place] 1.014 Urine Protein Negative Urine Glucose (UA) Negative Urine Ketones Trace H Urine Occult Blood Negative Urine Nitrate Negative Urine Bilirubin Negative Urine Urobilinogen Less than 2 Ur Leukocyte Esterase Moderate H Urine RBC 1 Urine WBC 6 H Urine Bacteria Rare H Hyaline Casts 1 Ur Microscopic Review Not Reportable Blood Type A Positive Antibody Screen Negative - Diagnostic results Imaging: Impressions Chest X-Ray 11/23/17 00:08 CONCLUSION: 1. No acute abnormality or significant interval change. Tibia/Fibula X-Ray 11/23/17 00:08 CONCLUSION: 1. No acute fracture. Femur X-Ray 11/23/17 00:09 CONCLUSION: 1. Right femoral neck fracture. Hip X-Ray 11/23/17 00:09 CONCLUSION: 1. Right femoral neck fracture, as above. Hip x-ray: report reviewed, image reviewed Assessment and Plan - Assessment and Plan Idalia has a displaced right femoral neck fracture. Treatment options were discussed. At this point I would recommend right hip hemiarthroplasty. I discussed treatment options with patient's daughter by telephone as well. The risk and benefits of surgery discussed in depth with patient. The risk and benefits of surgery were discussed in depth with patient. The risk of surgery include bleeding, infection, injuries to arteries, nerves, or blood vessels, infection, wound complications, leg length discrepancy, hip dislocation, femur fracture, painful hardware, and need for further surgery. I also discussed medical complications including blood clots, pneumonia, stroke, heart attack, and . Informed consent was obtained and all questions were answered. N.p.o.--plan on surgery this morning Calcium and vitamin D supplementation Physical therapy consult Follow-up with Dr. Kerr in 2 weeks MAXWELL Young Lovenox A mid-level provider in my office (nurse practitioner or physician academic assistant) may see this patient on follow-up visits and continue to implement the objectives of this plan including: Starting or adjusting medications, injections , cast application, orthotics, brace application, physical therapy, radiological studies (including x-ray, MRI, CT, ultrasound, bone scan), vascular studies, neurologic studies, specialist consultation, and proceeding with surgical management, as appropriate.
[2017-11-23] MEDS: Levothyroxine 100 MCG Tablet PO SCH (06:50)
[2017-11-23] MEDS ORDERED: Tranexamic Acid Inj 900 MG in Sodium Chlor 0.9% Inj 100 ML IV.SIG ONE (08:04)
[2017-11-23] MEDS ORDERED: Ketamine Inj 50 MG/5 ML Syringe IV.PUSH ONE (08:34)
[2017-11-23] MEDS ORDERED: Neostigmine Inj 5 MG/5 ML Syringe IV.PUSH ONE (08:42)
[2017-11-23] MEDS ORDERED: Glycopyrrolate Inj 1 MG/5 ML Syringe IV.PUSH ONE (08:42)
[2017-11-23] MEDS ORDERED: Lidocaine PF 1% Inj 5 ML Syringe INFILTRATN ONE (08:42)
[2017-11-23] MEDS ORDERED: Post-op Orders (for Pharmacy) OTHER STA (09:36)
--- NOTE | 2017-11-23 09:40 | P.OP ---
- Preoperative Diagnosis (1) Hip fracture, right Date of procedure: 11/23/17 Procedure: Right hip hemiarthroplasty Anesthesia: GETA Surgeon: Geoffrey Kerr MD Stripper Machine Operator: CHRISTINE Bird PA-C The surgical procedure was assisted by my physician assistant site manager. My P.A. presence was necessary throughout this case for the manipulation and positioning of the surgical extremity. My P.A. was assisting me throughout the duration of this procedure. The skill set of a physician assistant site manager was medically necessary to complete this procedure. During the surgical case the rn neurosurgical was working at the back table and the physician assistant site manager was directly assisting me. Operation and Findings: PLAN OF ACTIVITY Weight bear as tolerated. IMPLANTS USED [employer] Corail size 12 stem with size [46] bipolar head and [standard] neck. DETAILS OF PROCEDURE This patient was brought into the operating room and placed on the OR table. The patient was given anesthesia. The patient received IV antibiotics. The patient was then placed in lateral decubitus position. The hip and leg were prepped with alcohol, followed by Hibiclens and draped in a usual sterile fashion. Clean air was used for this procedure. Time out procedure was performed. The procedure began with a 5 inch incision over the posterolateral hip. The subcutaneous tissue was dissected with the Bovie. The iliotibial band were split in line with fibers. The Charnley retractor was placed. The piriformis and external rotators were released from the femur and tagged with a #1 Vicryl suture. The capsule is now incised and tagged with #1 Vicryl. The femoral neck fracture was now visualized. A corkscrew was now used to remove the femoral head. The femoral head was sized and measured. Soft tissue was now protected. The hip skid was placed underneath the femoral neck. An oscillating saw was used to make a femoral neck cut. At this point attention was turned to preparation of the proximal femur. A box osteotome was used to remove the lateral cortex of the femoral neck. The T- handle reamer was used to open the femoral canal. Next, the canal was broached. A lateralizing reamer was used to help lateralize the prosthesis. At this point a trial head and neck were placed. The hip was reduced. The patient was found to have excellent stability with good range of motion. Trial components were removed. Soft tissue and bone were thoroughly irrigated. A [place] stem was now opened. The stem was now impacted into the proximal femur. Care was taken to keep appropriate anteversion. The head and neck were now impacted onto the stem. The hip was again reduced. The hip was found to have good range of motion and good stability. Leg lengths were clinically equal. The wound was thoroughly irrigated. The capsule, piriformis and iliotibial band were closed with #1 Vicryl. Subcutaneous tissue was closed with 3-0 Vicryl. The skin was closed with jim. A sterile dressing was applied with Primapore. The patient was placed into a knee immobilizer. The patient was awakened and transferred to the recovery room in stable condition. Needle and sponge counts were correct.
[2017-11-23] MEDS: Gemfibrozil 600 MG Tablet PO SCH ×2 (09:52→20:10)
[2017-11-23] MEDS: Senna/Docusate Sodium 8.6/50 MG Tablet PO SCH ×2 (09:52→20:10)
[2017-11-23] MEDS ORDERED: ceFAZolin Inj 2,000 MG in Sodium Chlor 0.9% Inj 80 ML IV.SIG SCH (10:00)
[2017-11-23] MEDS ORDERED: *Ondansetron Inj 4 MG/2 ML Vial PERIprocedural Use ONLY ONE (10:04)
[2017-11-23] MEDS ORDERED: fentaNYL Citrate Inj 100 MCG/2 ML Ampul ONE (10:06)
[2017-11-23] MEDS ORDERED: *Meperidine Inj 25 MG/ML Vial PERIprocedural Use ONLY ONE (10:15)
[2017-11-23] MEDS ORDERED: *Promethazine Inj 25 MG/ML Vial PERIprocedural use ONLY ONE (10:21)
--- NOTE | 2017-11-23 11:23 | XR ---
EXAM DATE: 11/23/2017 11:20 AM EDT AGE/SEX: 87 years / Female INDICATIONS: Post op right hip replacement. CLINICAL DATA: This is the patient's subsequent encounter. Patient reports that signs and symptoms h ave been present for 2 days and indicates a pain score of 6/10. MEDICAL/SURGICAL HISTORY: Leukemia. Carcinoma, bone. None. COMPARISON: C, FEMUR RIGHT 2V, 11/23/2017. . FINDINGS: The patient is status post right hip arthroplasty. There is subcutaneous air, skin jim, and the h ardware appears well seated. No fractures are identified. CONCLUSION: Postop right hip arthroplasty. Electronically signed by: Greg Blanchard MD 11/23/2017 11:22 AM EDT
[2017-11-23] MEDS: Clindamycin 600 mg/NS Premix 600 MG/50 ML PIGGYBACK IV.SIG SCH ×2 (11:49→18:04)
--- NOTE | 2017-11-23 11:59 | ECG ---
Date Performed: 11/23/2017 Time Performed: 03:57:58 PTAGE: 87 years EKG: Sinus rhythm MARKED LEFT AXIS DEVIATION SEPTAL MYOCARDIAL INFARCTION ABNORMAL ECG NO PREVIOUS TRACING DOCTOR: Dejan Maxwell Interpretating Date/Time 11/23/2017 11:56:25
[2017-11-23] MEDS: Calcium/Vitamin D 250/125 MG Tablet PO SCH ×2 (12:00→17:25)
[2017-11-23] MEDS: Pantoprazole Sodium 20 MG DR Tablet PO SCH (18:41)
[2017-11-24] MEDS: Mirtazapine 15 MG Tablet PO PRN ×2 (00:52→23:26)
[2017-11-24] MEDS: Sod Chloride 0.9% Inj 1,000 ML IV.CONT SCH ×2 (01:34→08:45)
[2017-11-24 04:44] LABS: Hematocrit 36.6 % (35.0-46.0); Mean Corpuscular HGB Conc 32.9 % (32.0-36.0); Mean Corpuscular Hemoglobin 30.7 pg (27.0-34.0); Mean Corpuscular Volume 93.2 fL (80.0-100.0); Mean Platelet Volume 9.4 fL (7.0-11.0); Platelet Count 123 th/mm3 (150-450); Red Blood Count 3.93 mil/mm3 (4.00-5.30); Red Cell Distribution Width 14.6 % (11.6-17.2); White Blood Count 6.8 th/mm3 (4.0-11.0)
[2017-11-24 05:21] LABS: Calcium 8.2 mg/dL (8.5-10.1); Carbon Dioxide 24.9 meq/L (21.0-32.0); Potassium 3.9 meq/L (3.5-5.1)
[2017-11-24] MEDS: Levothyroxine 100 MCG Tablet PO SCH (06:22)
--- NOTE | 2017-11-24 06:46 | P.PNOP ---
Subjective Interval history: s/p right hip hemiarthroplasty doing well. pain controlled. has not been out of bed yet Physical Exam Vital signs: Vital Signs 11/23/17 07:54 11/23/17 09:56 11/23/17 10:15 Temperature 97.4 F L 97.8 F Pulse Rate 68 107 H 98 H Respiratory Rate 16 14 14 Blood Pressure 114/60 121/73 138/82 Pulse Oximetry 95 99 99 11/23/17 10:30 11/23/17 11:27 11/23/17 12:00 Temperature 97.4 F L 97.4 F L Pulse Rate 82 80 Respiratory Rate 14 16 Blood Pressure 141/72 H 153/69 H Pulse Oximetry 99 96 96 11/23/17 16:00 11/23/17 16:29 11/23/17 20:00 Temperature 97.9 F 98 F Pulse Rate 76 65 Respiratory Rate 16 18 Blood Pressure 141/73 H 129/61 Pulse Oximetry 94 L 96 97 11/24/17 00:00 11/24/17 04:00 Temperature 98.3 F 99.4 F Pulse Rate 77 74 Respiratory Rate 17 18 Blood Pressure 135/63 133/71 Pulse Oximetry 95 94 L Intake & Output 11/23/17 11/23/17 11/24/17 06:59 18:59 06:59 Intake Total 1609 / 1609 Output Total 860 / 860 Balance 749 / 749 Weight 58.3 kg Intake: IV 209 / 209 NS Inj 1,000 ML @ 100 mls/hr IV 0 / 0 .CONT .Q10H [facility] Rx#:[id number] Cleocin 600 mg/NS Premix 600 mg 100 / 100 In 50 ml @ 100 mls/hr IV.SIG Q8H [facility] Rx#:[id number] Cyklokapron Inj 900 MG In NS 109 / 109 Inj 100 ML @ 218 mls/hr IV.SIG ONCE ONE Rx#:[id number] Oral 400 / 400 Anesthesia Amount 1000 / 1000 Output: Urine 680 / 680 Estimated Blood Loss 50 / 50 Urine Amount (Catheter) 130 / 130 Indwelling Urethral Catheter 130 / 130 Other: Date of Last Bowel Movement 11/22/17 11/22/17 Weight On Admission 58.3 kg Narrative: RLE: +CKS. dressing clean and dry. NVI. - Urinary Catheter Management Indwelling Urethral Catheter Cath placed during this visit: yes, but has since been removed by the nurse Reason for continuing: Decision to DC catheter Insertion date: 11/23/17 Insertion time: 01:28 Removal date: 11/24/17 Removal time: 03:00 Results - Labs CBC & Chem 7: 11/24/17 03:27 11/24/17 03:27 Laboratory Results - last 24 hr 11/24/17 11/24/17 03:27 03:27 WBC 6.8 RBC 3.93 L Hgb 12.0 Hct 36.6 MCV 93.2 MCH 30.7 MCHC 32.9 RDW 14.6 Plt Count 123 L MPV 9.4 Sodium 142 Potassium 3.9 Chloride 107 Carbon Dioxide 24.9 Anion Gap 10 BUN 14 Creatinine 1.08 H Estimated GFR 48 L Random Glucose 109 H Calcium 8.2 L - Imaging Impressions Hip X-Ray 11/23/17 09:36 CONCLUSION: Postop right hip arthroplasty. Assessment and Plan - Assessment and Plan 1) Right Femoral Neck Fx s/p Hemiarthroplasty - POD 1 -WBAT -posterior hip precautions -knee brace while in bed -daily dressing changes POD 2 with primapore -CM for rehab placement -DVT prophylaxis -f/u with [facility] or [facility] in 2 weeks [facility] Prescription Drug Monitoring Database has been queried and verified prior to prescribing the controlled substance. Acute pain exception. This patient has normal, predicted, physiological, and time limited response to an adverse mechanical stimulus associated with surgery, trauma, or acute illness as described in my notes. There is a lack of alternative treatment options other than to include the prescribed narcotic treatment for this condition.
--- NOTE | 2017-11-24 08:29 | P.PN ---
Subjective Interval history: Patient doing well. However per nursing, patient had some sundowning overnight and pulled out her Cervantes catheter. Patient denies urinary symptoms. Patient is feeding, voiding well, +gas. No current concerns. Physical Exam Vital signs: Vital Signs 11/23/17 09:56 11/23/17 10:15 11/23/17 10:30 Temperature 97.8 F 97.4 F L Pulse Rate 107 H 98 H 82 Respiratory Rate 14 14 14 Blood Pressure 121/73 138/82 141/72 H Pulse Oximetry 99 99 99 11/23/17 11:27 11/23/17 12:00 11/23/17 16:00 Temperature 97.4 F L 97.9 F Pulse Rate 80 76 Respiratory Rate 16 16 Blood Pressure 153/69 H 141/73 H Pulse Oximetry 96 96 94 L 11/23/17 16:29 11/23/17 20:00 11/24/17 00:00 Temperature 98 F 98.3 F Pulse Rate 65 77 Respiratory Rate 18 17 Blood Pressure 129/61 135/63 Pulse Oximetry 96 97 95 11/24/17 04:00 Temperature 99.4 F Pulse Rate 74 Respiratory Rate 18 Blood Pressure 133/71 Pulse Oximetry 94 L Intake & Output 11/23/17 11/24/17 11/24/17 18:59 06:59 18:59 Intake Total 1609 / 1609 300 / 300 1000 / 1000 Output Total 860 / 860 500 / 500 Balance 749 / 749 -200 / -200 1000 / 1000 Weight 67.5 kg Intake: IV 209 / 209 1000 / 1000 NS Inj 1,000 ML @ 100 mls/hr IV 0 / 0 1000 / 1000 .CONT .Q10H ISIDORO Rx#:[id number] Cleocin 600 mg/NS Premix 600 mg 100 / 100 In 50 ml @ 100 mls/hr IV.SIG Q8H IS[facility]O Rx#:[id number] Cyklokapron Inj 900 MG In NS 109 / 109 Inj 100 ML @ 218 mls/hr IV.SIG ONCE ONE Rx#:[id number] Oral 400 / 400 300 / 300 Anesthesia Amount 1000 / 1000 Output: Urine 680 / 680 500 / 500 Estimated Blood Loss 50 / 50 Urine Amount (Catheter) 130 / 130 Indwelling Urethral Catheter 130 / 130 Other: Date of Last Bowel Movement 11/22/17 11/22/17 Narrative: GENERAL: thin female, in NAD, pleasant, lying comfortably in bed. SKIN: Warm and dry. HEAD: Normocephalic. EYES: No scleral icterus. No injection or drainage. NECK: Supple, trachea midline. No JVD or lymphadenopathy. CARDIOVASCULAR: Regular rate and rhythm without murmurs, gallops, or rubs. RESPIRATORY: Breath sounds equal bilaterally. No accessory muscle use. GASTROINTESTINAL: Abdomen soft, non-tender, nondistended. MUSCULOSKELETAL: No cyanosis, or edema. BACK: Nontender without obvious deformity. No CVA tenderness. R HIP/LE: Brace in place, minimal edema, no cyanosis. NEURO: AAOx2. - Urinary Catheter Management Indwelling Urethral Catheter Cath placed during this visit: yes, but has since been removed by the nurse Reason for continuing: Decision to DC catheter Insertion date: 11/23/17 Insertion time: 01:28 Removal date: 11/24/17 Removal time: 03:00 Results - Labs CBC & Chem 7: 11/24/17 03:27 11/24/17 03:27 Laboratory Results - last 24 hr 11/24/17 11/24/17 03:27 03:27 WBC 6.8 RBC 3.93 L Hgb 12.0 Hct 36.6 MCV 93.2 MCH 30.7 MCHC 32.9 RDW 14.6 Plt Count 123 L MPV 9.4 Sodium 142 Potassium 3.9 Chloride 107 Carbon Dioxide 24.9 Anion Gap 10 BUN 14 Creatinine 1.08 H Estimated GFR 48 L Random Glucose 109 H Calcium 8.2 L - Imaging Impressions Hip X-Ray 11/23/17 09:36 CONCLUSION: Postop right hip arthroplasty. Assessment and Plan - Assessment (1) Fall Code(s): W19.XXXA - Unspecified fall, initial encounter Status: Acute (2) Hip fracture, right Code(s): S72.001A - Fracture of unspecified part of neck of right femur, initial encounter for closed fracture Status: Resolved (3) Renal insufficiency Code(s): N28.9 - Disorder of kidney and ureter, unspecified Status: Acute - Plan 87 y/o CF with PMHX of Dementia admitted for IP mgmt of Hip fracture, s/p Right Femoral Neck Fx s/p Hemiarthroplasty - POD#2, doing well 1. POST OP CARE -managed by Ortho, posterior hip precautions, knee brace while in bed , daily dressing changes with primapore -CM for rehab placement, 3008 done by Ortho in chart -DVT prophylaxis with Lovenox -f/u with Jordi or SWETA in 2 weeks upon D/C 2. Fall: s/p mechanical fall at home, denies LOC or head trauma. 3. USAMA: improved, Creatinine 1.08 from1.28, encourage OP hydration, F/U BMP in AM. 4. Dementia: stable, cont. home Donepezil, Memantine, and Remeron. 5. Hypothyroidism: Cont. home Levo. 6. HLD: cont. home Gemfibrozil 7. DVT Prophylaxis: Lovenox
[2017-11-24] MEDS: Pantoprazole Sodium 20 MG DR Tablet PO SCH (08:38)
[2017-11-24] MEDS: Calcium/Vitamin D 250/125 MG Tablet PO SCH ×3 (08:38→17:35)
[2017-11-24] MEDS: Enoxaparin Inj 30 MG/0.3 ML Syringe SQ SCH (08:38)
[2017-11-24] MEDS: Senna/Docusate Sodium 8.6/50 MG Tablet PO SCH ×2 (08:38→20:33)
[2017-11-24] MEDS: Gemfibrozil 600 MG Tablet PO SCH ×2 (08:38→20:33)
[2017-11-24] MEDS: Morphine Inj 4 MG/ML Vial IV.PUSH PRN (14:58)
[2017-11-25] MEDS: Levothyroxine 100 MCG Tablet PO SCH (06:18)
--- NOTE | 2017-11-25 06:45 | P.PNOP ---
Subjective Interval history: Resting comfortably with no new complaints. Physical Exam Vital signs: Vital Signs 11/24/17 08:00 11/24/17 10:05 11/24/17 12:00 Temperature 99.1 F 97.4 F L Pulse Rate 77 75 Respiratory Rate 14 18 16 Blood Pressure 118/60 114/58 L Pulse Oximetry 93 L 92 L 11/24/17 14:13 11/24/17 15:00 11/24/17 16:00 Temperature 98.1 F Pulse Rate 66 Respiratory Rate 18 18 14 Blood Pressure 118/62 Pulse Oximetry 93 L 11/24/17 18:06 11/24/17 19:49 11/25/17 01:15 Temperature 98.3 F 98 F Pulse Rate 75 79 Respiratory Rate 18 17 Blood Pressure 128/68 134/61 Pulse Oximetry 93 L 93 L 11/25/17 02:30 Temperature Pulse Rate Respiratory Rate 17 Blood Pressure Pulse Oximetry Intake & Output 11/24/17 11/24/17 11/25/17 06:59 18:59 06:59 Intake Total 300 / 300 1480 / 1480 Output Total 500 / 500 Balance -200 / -200 1480 / 1480 Weight 67.5 kg Intake: IV 1000 / 1000 NS Inj 1,000 ML @ 100 mls/hr IV 1000 / 1000 .CONT .Q10H ISID[facility]O Rx#:[id number] Oral 300 / 300 480 / 480 Output: Urine 500 / 500 Other: # Voids 2 Date of Last Bowel Movement 11/22/17 11/22/17 11/22/17 Narrative: Right lower extremity: Clean dry dressings intact. Mild swelling. Knee immobilizer in place. Intact sensation distally with active dorsiflexion and plantarflexion of the foot - Urinary Catheter Management Indwelling Urethral Catheter Cath placed during this visit: yes, but has since been removed by the nurse Reason for continuing: Decision to DC catheter Insertion date: 11/23/17 Insertion time: 01:28 Removal date: 11/24/17 Removal time: 03:00 Results - Labs CBC & Chem 7: 11/24/17 03:27 11/24/17 03:27 Assessment and Plan - Assessment and Plan 1) Right Femoral Neck Fx s/p Hemiarthroplasty - POD 2 -WBAT -posterior hip precautions -knee brace while in bed -daily dressing changes POD 2 with primapore -CM for rehab placement - orhto cleared -DVT prophylaxis -f/u with Jordi or SWETA in 2 weeks [id number] Prescription Drug Monitoring Database has been queried and verified prior to prescribing the controlled substance. Acute pain exception. This patient has normal, predicted, physiological, and time limited response to an adverse mechanical stimulus associated with surgery, trauma, or acute illness as described in my notes. There is a lack of alternative treatment options other than to include the prescribed narcotic treatment for this condition.
[2017-11-25] MEDS: Calcium/Vitamin D 250/125 MG Tablet PO SCH ×2 (08:14→13:15)
[2017-11-25] MEDS: Pantoprazole Sodium 20 MG DR Tablet PO SCH (08:14)
[2017-11-25] MEDS: Gemfibrozil 600 MG Tablet PO SCH (08:14)
[2017-11-25] MEDS: Enoxaparin Inj 30 MG/0.3 ML Syringe SQ SCH (08:14)
[2017-11-25] MEDS: Senna/Docusate Sodium 8.6/50 MG Tablet PO SCH (08:14)
--- NOTE | 2017-11-25 09:10 | P.DS ---
Date of admission: 11/23/17 01:44 Primary care physician: Snehal Bella MD Attending physician on discharge: Nicole Wise Anticipated date of discharge: 11/25/17 Brief History from admission: This is an 87-year-old female with a PMH of HTN, Polymyalgia Rheumatica, Non- Hodgkin's Lymphoma and CAD who was brought to the ER by EMS w/ c/o right hip pain after a fall. Pt states she was sitting on her porch in a "swivel chair" and lost her balance when she got up, landing on her right hip. Reports some dizziness prior to fall, but no head trauma or LOC. Pain initially severe, 10/ 10, worse w/ movement, non-radiating. S/p Morphine in ER w/ significant improvement, currently pain free. On arrival, BP 146/72, HR 60, O2 sat 97% on RA, Afebrile. CBC unremarkable except for thrombus cytopenia with platelets 149. INR 1.0. Chemistry unremarkable except for creatinine 1.28, Cici 1.10 on 01/15/2016. Troponin negative. UA moderate LE. CXR no acute findings. Tib- fib X-ray no acute fracture. Femur/Hip x-ray right femoral neck fracture. Patient update on day of discharge: Pleasantly confused elderly female sitting up in chair. No complaints. Denies pain. Tolerating PO. Unsure if she's passed gas or had a BM. Doesn't remember why she is in the hospital. DS: Diagnosis - Discharge Diagnosis (1) Hip fracture, right Status: Resolved DS: Medications - Discharge Medications Prescriptions: hydrocodone-acetaminophen [[place]] 1 tab PO Q4H #40 tab rivaroxaban [Xarelto] 10 mg PO DAILY #14 tab DS: Summary Hospital Course: 87-year-old female with history of dementia, polymyalgia rheumatica, and HLD admitted on 11/23 for right hip fracture after a mechanical fall. Orthopedic surgery was consulted and patient underwent right hip hemiarthroplasty on 11/23. She did well postoperatively and was cleared for discharge to SNF on 11/25. - Time Spent with Patient Total time spent providing and/or coordinating discharge services: Less than 30 minutes - Quality: VTE Deep Vein Thrombosis/Pulmonary Embolism Present on Admission: No Exam Vital signs: Vital Signs 11/24/17 10:05 11/24/17 12:00 11/24/17 14:13 Temperature 97.4 F L Pulse Rate 75 Respiratory Rate 18 16 18 Blood Pressure 114/58 L Pulse Oximetry 92 L 11/24/17 15:00 11/24/17 16:00 11/24/17 18:06 Temperature 98.1 F Pulse Rate 66 Respiratory Rate 18 14 18 Blood Pressure 118/62 Pulse Oximetry 93 L 11/24/17 19:49 11/25/17 01:15 11/25/17 02:30 Temperature 98.3 F 98 F Pulse Rate 75 79 Respiratory Rate 17 17 Blood Pressure 128/68 134/61 Pulse Oximetry 93 L 93 L Intake & Output 11/24/17 11/25/17 11/25/17 18:59 06:59 18:59 Intake Total 1480 / 1480 Balance 1480 / 1480 Intake: IV 1000 / 1000 NS Inj 1,000 ML @ 100 mls/hr IV 1000 / 1000 .CONT .Q10H ISID[facility]O Rx#:[id number] Oral 480 / 480 Other: # Voids 2 Date of Last Bowel Movement 11/22/17 11/22/17 11/22/17 Narrative: GENERAL: WN, WD elderly female sitting up in chair in NAD. SKIN: Warm and dry. HEENT: Pinpoint pupils bilaterally. MMM HEART: RRR no m/r/g. LUNGS: CTAB without wheezes or crackles. ABDOMEN: +BS, soft, NT, ND. EXTREMITIES: No LE edema. Right knee brace in place. Neurovascular intact. Able to wiggle toes. NEURO: Pleasantly confused but awake and alert. Results Procedures completed during hospitalization: Right hemiarthroplasty 11/23 - Impressions ITS Impressions Chest X-Ray 11/23/17 00:08 CONCLUSION: 1. No acute abnormality or significant interval change. Tibia/Fibula X-Ray 11/23/17 00:08 CONCLUSION: 1. No acute fracture. Femur X-Ray 11/23/17 00:09 CONCLUSION: 1. Right femoral neck fracture. Hip X-Ray 11/23/17 09:36 CONCLUSION: Postop right hip arthroplasty. Discharge Plan - Discharge Disposition Patient Disposition: 03 Discharge to SNF - Discharge Condition Condition: Stable - Discharge Order Discharge Orders: Discharge Order (Routine); Ordered 11/25/17 Ordered By: Nicole Fritze Orthopedic Clear for Discharge (Routine); Ordered 11/25/17 Ordered By: Romeo Gomez - Discharge Details Anticipated Discharge Date: 11/25/17 - Physicians Team Primary Care Provider: Snehal Bella Attending Provider: Nicole Wise Other Providers: Geoffrey Kerr MD ; [facility] ; [employer]
[2017-11-25 09:49] LABS: Baso % (Auto) 0.6 % (0.0-2.0); Eos # (Auto) 0.3 th/mm3 (0.0-0.4); Eos % (Auto) 4.5 % (0.0-4.0); Hematocrit 35.8 % (35.0-46.0); Hemoglobin 11.8 gm/dL (11.6-15.3); Lymph # (Auto) 0.6 th/mm3 (1.0-4.8); Lymph % (Auto) 10.2 % (9.0-44.0); Mean Corpuscular HGB Conc 33.1 % (32.0-36.0); Mean Corpuscular Volume 93.7 fL (80.0-100.0); Mean Platelet Volume 9.7 fL (7.0-11.0); Mono # (Auto) 0.6 th/mm3 (0.0-0.9); Mono % (Auto) 9.2 % (0.0-8.0); Neut # (Auto) 4.7 th/mm3 (1.8-7.7); Neut % (Auto) 75.5 % (16.0-70.0); Platelet Count 110 th/mm3 (150-450); Red Blood Count 3.82 mil/mm3 (4.00-5.30); Red Cell Distribution Width 14.8 % (11.6-17.2); White Blood Count 6.2 th/mm3 (4.0-11.0)
[2017-11-25 10:27] LABS: Alanine Aminotransferase 14 U/L (10-53); Albumin 2.6 g/dL (3.4-5.0); Alkaline Phosphatase 84 U/L (45-117); Anion Gap 8 meq/L (5-15); Aspartate Aminotransferase 30 U/L (15-37); Blood Urea Nitrogen 13 mg/dL (7-18); Calcium 8.7 mg/dL (8.5-10.1); Carbon Dioxide 26.9 meq/L (21.0-32.0); Chloride 105 meq/L (98-107); Glomerular Filtration Rate 55 mL/min (>89); Glucose,Random 83 mg/dL (74-106); Sodium 140 meq/L (136-145); Total Protein 6.2 g/dL (6.4-8.2)
== END 2017-11-25 16:36 ==
LOC: NEPC 23:13 → NEDA 11-23 01:44 → N06 11-23 04:34
PROVIDERS: ADMIT Family Medicine; ATTEND Family Medicine